=== PATIENT | female | born 1955 | race Caucasian/White ===

== ENCOUNTER 2018-02-04 04:55 | Observation (INO) | payer BC, OTHER ==
[2018-02-04 05:18] LABS: ADD MAN DIFF? NO
[2018-02-04 05:20] LABS: ABNORMAL IP MESSAGE 1; BASOPHILS % 0.2 % (0.0-2.0); EOSINOPHILS % 0.4 % (0.0-7.0); HEMATOCRIT 35.3 % (37.0-47.0); HEMOGLOBIN 12.1 g/dl (12.0-16.0); LYMPHOCYTES # 0.2 10^3/ul (0.8-2.9); LYMPHOCYTES % 3.9 % (15.0-51.0); MEAN CORPUSCULAR HEMOGLOBIN 30.9 pg (29.0-33.0); MEAN CORPUSCULAR HGB CONC 34.3 g/dl (32.0-37.0); MEAN CORPUSCULAR VOLUME 90.3 fl (82.0-101.0); MEAN PLATELET VOLUME 10.6 fl (7.4-10.4); MONOCYTE # 0.2 10^3/ul (0.3-0.9); MONOCYTES % 4.2 % (0.0-11.0); NEUTROPHIL # 5.2 10^3/ul (1.6-7.5); NEUTROPHILS % 91.1 % (39.0-77.0); PLATELET COUNT 179 10^3/UL (140-415); RED BLOOD COUNT 3.91 10^6/ul (4.20-5.40); RED CELL DISTRIBUTION WIDTH 12.6 % (11.5-14.5)
[2018-02-04 05:20] LABS: WHITE BLOOD COUNT 5.7 10^3/ul (4.8-10.8)
[2018-02-04 05:23] LABS: POSITIVE DIFF @See below
[2018-02-04] MEDS: ONDANSETRON 4 MG INJ IV (05:39)
[2018-02-04 05:40] LABS: ANION GAP 8 (5-13); BLOOD UREA NITROGEN 16 mg/dl (7-20); CARBON DIOXIDE 24 mmol/L (21-31); CHLORIDE 106 mmol/L (97-110); CREATININE 0.78 mg/dl (0.44-1.00); Estimated GFR > 60 mL/min (>60); GLUCOSE 161 mg/dl (70-220); POTASSIUM 4.3 mmol/L (3.5-5.1); SODIUM 138 mmol/L (135-144)
[2018-02-04 05:51] LABS: TROPONIN-I < 0.012 ng/ml (0.000-0.120)
[2018-02-04] MEDS: SOD CHLORIDE 0.9% 1,000 ML IV ×4 (06:11→21:33)
[2018-02-04] MEDS ORDERED: BISACODYL (EC) 5 MG TAB PO (07:00)
[2018-02-04] MEDS ORDERED: ONDANSETRON 4 MG INJ IV (07:00)
[2018-02-04] MEDS ORDERED: DOCUSATE SODIUM 100 MG CAP PO (07:00)
[2018-02-04] MEDS ORDERED: NACL 0.9% 3 ML SYG IV (07:00)
[2018-02-04 07:42] LABS: ADD UMIC NO; UR ASCORBIC ACID NEGATIVE (NEGATIVE); UR BILIRUBIN (Dip) NEGATIVE (NEGATIVE); UR BLOOD (Dip) NEGATIVE (NEGATIVE); UR CLARITY CLEAR (CLEAR); UR COLOR STRAW (YELLOW); UR GLUCOSE (Dip) NEGATIVE (NEGATIVE); UR KETONES (Dip) NEGATIVE (NEGATIVE); UR LEUKOCYTE ESTERASE (Dip) NEGATIVE Leu/ul (NEGATIVE); UR NITRITE (Dip) NEGATIVE (NEGATIVE); UR SPECIFIC GRAVITY (Dip) 1.008 (1.003-1.030); UR TOTAL PROTEIN (Dip) NEGATIVE (NEGATIVE); UR UROBILINOGEN (Dip) NEGATIVE (NEGATIVE)
[2018-02-04 08:03] LABS: AMPHETAMINE/METHAMPHETAMINE Negative (NEGATIVE); BARBITURATES Negative (NEGATIVE); BENZODIAZEPINES Negative (NEGATIVE); CANNABINOIDS Negative (NEGATIVE); COCAINE Negative (NEGATIVE); OPIATES Negative (NEGATIVE)
[2018-02-04 10:47] LABS: HEMOGLOBIN A1C 5.3 % (0-5.9)
[2018-02-04 10:51] LABS: CREATINE KINASE 47 IU/L (23-200)
[2018-02-04 10:52] LABS: MAGNESIUM 1.9 mg/dl (1.7-2.5)
[2018-02-04 10:53] LABS: LIPASE 58 U/L (23-300)
[2018-02-04 10:53] LABS: ALANINE AMINOTRANSFERASE 23 IU/L (13-69); ALBUMIN 3.3 g/dl (3.3-4.9); ALKALINE PHOSPHATASE 52 IU/L (42-121); ASPARTATE AMINO TRANSFERASE 22 IU/L (15-46); BILIRUBIN,INDIRECT 0.4 mg/dl (0-1.1); BILIRUBIN,TOTAL 0.4 mg/dl (0.2-1.3); CHOL/HDL RATIO 2.4 RATIO; CHOLESTEROL 176 mg/dl (100-200); HDL CHOLESTEROL 73 mg/dl (35-98); LDL CHOLESTEROL,CALCULATED 94 mg/dl; TOTAL PROTEIN 5.5 g/dl (6.1-8.1); TRIGLYCERIDES 43 mg/dl (0-149)
[2018-02-04 11:02] LABS: CK INDEX 0.5; CK-MB 0.23 ng/ml (0.0-2.4); TROPONIN-I < 0.012 ng/ml (0.000-0.120)
[2018-02-04 11:19] LABS: THYROID STIMULATING HORMONE 0.794 MIU/L (0.465-4.680)
[2018-02-04 15:22] LABS: CREATINE KINASE 52 IU/L (23-200)
[2018-02-04 15:33] LABS: CK INDEX 0.4; CK-MB < 0.22 ng/ml (0.0-2.4); TROPONIN-I < 0.012 ng/ml (0.000-0.120)
[2018-02-04] MEDS: ACETAMINOPHEN 325 MG TAB PO (16:25)
[2018-02-04] MEDS: SOD CHLORIDE 0.9% 500 ML IV (22:42)
[2018-02-04] MEDS: ZOLPIDEM 5 MG TAB PO (23:06)
[2018-02-05 05:35] LABS: WHITE BLOOD COUNT 2.3 10^3/ul (4.8-10.8)
[2018-02-05 05:35] LABS: ABNORMAL IP MESSAGE 1; HEMATOCRIT 30.4 % (37.0-47.0); HEMOGLOBIN 10.3 g/dl (12.0-16.0); MEAN CORPUSCULAR HEMOGLOBIN 31.1 pg (29.0-33.0); MEAN CORPUSCULAR HGB CONC 33.9 g/dl (32.0-37.0); MEAN CORPUSCULAR VOLUME 91.8 fl (82.0-101.0); MEAN PLATELET VOLUME 10.9 fl (7.4-10.4); PLATELET COUNT 152 10^3/UL (140-415); RED BLOOD COUNT 3.31 10^6/ul (4.20-5.40); RED CELL DISTRIBUTION WIDTH 12.8 % (11.5-14.5)
[2018-02-05 06:10] LABS: ALANINE AMINOTRANSFERASE 27 IU/L (13-69); ALBUMIN 2.8 g/dl (3.3-4.9); ALBUMIN/GLOBULIN RATIO 1.55; ALKALINE PHOSPHATASE 40 IU/L (42-121); ANION GAP 6 (5-13); ASPARTATE AMINO TRANSFERASE 24 IU/L (15-46); BILIRUBIN,INDIRECT 0.1 mg/dl (0-1.1); BILIRUBIN,TOTAL 0.1 mg/dl (0.2-1.3); BLOOD UREA NITROGEN 5 mg/dl (7-20); CALCIUM 7.9 mg/dl (8.4-10.2); CARBON DIOXIDE 23 mmol/L (21-31); CHLORIDE 110 mmol/L (97-110); CREATININE 0.71 mg/dl (0.44-1.00); Estimated GFR > 60 mL/min (>60); GLUCOSE 95 mg/dl (70-220); POTASSIUM 3.3 mmol/L (3.5-5.1); SODIUM 139 mmol/L (135-144); TOTAL PROTEIN 4.6 g/dl (6.1-8.1)
[2018-02-05 06:15] LABS: FREE T4 (FREE THYROXINE) 0.86 ng/dl (0.78-2.44)
[2018-02-05 06:22] LABS: ADD MAN DIFF? YES; POSITIVE DIFF @See below
[2018-02-05 07:11] LABS: BAND NEUTROPHILS #M 0.3 10^3/ul (0.0-0.6); BAND NEUTROPHILS % (M) 16 % (0-4); EOSINOPHILS % (M) 7 % (0-7); LYMPHOCYTES #M 0.4 10^3/ul (0.8-2.9); LYMPHOCYTES % (M) 18 % (15-51); MONOCYTE #M 0.1 10^3/ul (0.3-0.9); MONOCYTES % (M) 6 % (0-11); PLATELET ESTIMATE NORMAL; POLYCHROMASIA 1+ (0-0); REACTIVE LYMPHOCYTES% (M) 3 % (0-0); SEG NEUT #M 1.2 10^3/ul (1.6-7.5); SEGMENTED NEUTROPHILS (M) % 50 % (39-77); SMUDGE%M 30 % (0-0)
[2018-02-05 07:21] LABS: PHOSPHORUS 2.7 mg/dl (2.5-4.9)
[2018-02-05 07:21] LABS: MAGNESIUM 1.8 mg/dl (1.7-2.5)
[2018-02-05] MEDS: SOD CHLORIDE 0.9% 1,000 ML IV (07:30)
[2018-02-05] MEDS: ACETAMINOPHEN 325 MG TAB PO (07:38)
[2018-02-05] MEDS: CHOLECALCIFEROL 1,000 UNIT TAB PO (08:21)
[2018-02-05] MEDS ORDERED: HYDROXYCHLOROQUINE 200 MG TAB PO (09:00)
== END 2018-02-05 15:00 | disposition home or self-care (01) ==
LOC: E/R 04:55 → 6WM 06:09
PROVIDERS: Family Medicine
DX: R55 Syncope and collapse (principal); L43.9 Lichen planus, unspecified; R60.9 Edema, unspecified
CPT/HCPCS: 36415; 70450; 71045; 80048; 80053; 80061; 80076; 80307; 81003; 82550; 82553; 82962; 83036; 83690; 83735; 84100; 84439; 84443; 84484; 85025; 93005; 93306; 93880; 96374; 97161; 99285-25; G0378